=== PATIENT | male | born 1965 | race Caucasian/White ===

== ENCOUNTER 2018-01-01 22:43 | Inpatient (IN) ==
[2018-01-01 23:08] LABS: Basophils # 0.1 K/mcL (0.0-0.2); Basophils % 0.6 %; Eosinophils # 0.1 K/mcL (0.0-0.6); Eosinophils % 1.4 %; Hematocrit 48.7 % (37.5-50.1); Hemoglobin 16.7 g/dL (12.9-16.9); Immature Granulocytes % 0.5 % (0-4); Lymphocytes # 3.5 K/mcL (0.6-4.6); Lymphocytes % 40.2 %; Mean Corpuscular HGB Conc 34.3 g/dL (31.6-35.5); Mean Corpuscular Hemoglobin 31.3 pg (28.0-33.3); Mean Corpuscular Volume 91.2 fL (83.0-100.0); Mean Platelet Volume 10.4 fL (9.4-12.4); Monocytes # 0.5 K/mcL (0.0-1.3); Monocytes % 6.1 %; Neutrophils # 4.5 K/mcL (1.6-8.9); Platelet Count 275 K/mcL (140-400); Red Blood Count 5.34 M/mcL (4.19-5.50); Red Cell Distribution Width 13.5 % (11.5-14.5); Segmented Neutrophils % 51.2 %
[2018-01-01 23:18] LABS: INR 1.1
[2018-01-01 23:21] LABS: Activated Partial Thrombo Time 31.2 Seconds (26.0-36.0)
[2018-01-01 23:37] LABS: BUN/Creatinine Ratio 16 (6-26); Blood Urea Nitrogen 13 mg/dL (6-20); Calcium 9.6 mg/dL (8.6-10.3); Carbon Dioxide 25 mEq/L (23-29); Chloride 108 mEq/L (98-107); Glucose 113 mg/dL (70-105); Osmolality,Calculated 293 (280-300); Potassium 3.5 mEq/L (3.5-5.1); Sodium 141 mEq/L (136-145); eGFR For African Americans > 60 (> 60); eGFR For Non-African Americans > 60 (> 60)
[2018-01-01 23:38] LABS: Troponin I < 0.03 ng/mL (< 0.04)
--- NOTE | 2018-01-02 00:02 | Emergency Department Note ---
Disposition Clinical Impression: Chest pain Qualifiers: Chest pain type: unspecified Qualified Code(s): R07.9 - Chest pain, unspecified Disposition: Admitted As Inpatient Condition: Good Time of Disposition: 02:17 Chest Pain HPI - General Chief Complaint: ED Chest Pain Stated Complaint: cp Time Seen by Provider: 01/01/18 23:05 Source: patient Limitations: no limitations Vital Signs Reviewed: Yes Nursing Notes Reviewed: Yes - History of Present Illness Pt complaint: chest pain Onset (ago): week(s) Duration: intermittent Onset: during exertion Pain Location: substernal Severity scale (1-10): 6 Quality: heaviness Improves with: nothing Worsens with: exertion Associated symptoms: Reports: other (skin color changes in hands) - Related Data Allergies Allergy/AdvReac Type Severity Reaction Status Date / Time No Known Allergies Allergy Verified 01/01/18 22:44 All systems ED: reviewed and negative except as stated. Review of Systems: As Per HPI Constitutional: Denies: fever, chills, weakness Eyes: Denies: eye discharge ENT ED: Denies: throat pain Cardiovascular: Denies: palpitations Respiratory: Reports: as per HPI. Denies: dyspnea Gastrointestinal: Denies: abdominal pain, nausea, vomiting Genitourinary: Denies: dysuria Musculoskeletal: Denies: back pain Integumentary: Denies: rash Neurological: Denies: headache, weakness, numbness, paresthesias Psychiatric: Reports: as per HPI, anxiety Endocrine: Denies: fatigue Hematological/Lymphatic: Denies: easy bleeding Allergic/Immunologic: Denies: facial swelling Chest Pain PMH - Past Medical History Medical history: Reports: no medical history Psychiatric history: Reports: anxiety - Social History Smoking Status: Current every day smoker Alcohol use: Reports: none Drug use: Reports: none Physical Exam - General Limitations: no limitations General appearance: alert, in no apparent distress, anxious - Head Head exam: normocephalic - Eye Eye exam: Present: EOMI. Absent: conjunctival injection - ENT ENT exam: mucous membranes moist - Neck Neck exam: Present: full ROM - Chest Chest inspection: Present: normal inspection, symmetric chest wall rise - Respiratory Respiratory exam: Present: normal lung sounds bilaterally. Absent: respiratory distress, wheezes, stridor - Cardiovascular Cardiovascular exam: Present: regular rate, normal rhythm - Abdominal Exam Abdominal exam: Present: soft, Non-Tender - Extremities Exam Extremities exam: Present: normal inspection, full ROM, normal capillary refill - Back Exam Back exam: Present: normal inspection, full ROM - Neurological Exam Neurological exam: Present: alert, oriented X3 - Psychiatric Psychiatric exam: Present: normal affect, normal mood. Absent: suicidal ideation - Skin Skin exam: Present: warm, dry, intact, normal color. Absent: rash, cyanosis, diaphoresis Course Course Narrative: 52-year-old male smoker presents with chest pain. He states that his chest pain has been intermittent, lasting since last week. He mentions it has started , he also mentions recent loss of his unexpectedly. He mentions his chest pain is accompanied with some shortness of breath, and no some discussed separation of his hands. He denies any nausea, vomiting, diaphoresis or exertional component. He mentions he is noncompliant with his medications, denies any history of hypertension hyperlipidemia, or diabetes. Denies any fever, cough, hemoptysis, or thoughts of worsening depression or SI. Workup initiated. - Reevaluation(s) Reevaluation #1: Pt vitals stable. Currently pain free. Pt discussed with and accepted by hospitalist Dr. Ramirez Time: 02:16 Vital Signs Temperature 98.2 F 01/01/18 22:45 Pulse Rate 84 01/01/18 22:45 Respiratory Rate 20 01/01/18 22:45 Blood Pressure 219/139 01/01/18 22:45 O2 Sat by Pulse Oximetry 96 01/01/18 22:45 Temperature 98.2 F 01/01/18 22:45 Pulse Rate 63 01/02/18 02:06 Respiratory Rate 18 01/02/18 02:33 Blood Pressure 151/92 01/02/18 02:33 O2 Sat by Pulse Oximetry 96 01/02/18 02:06 Oxygen Delivery Oxygen Delivery Nasal Cannula Chest Pain - [facility] Narrative Medical decision making narrative: Patient has had intermittent chest pain, coming with shortness of breath, worse with exertion. He is currently pain-free at this time, however Patient has a heart score 3, with significant history of hypertension, obesity, smoker. He has no recent cardiac workup or Evaluation. Patient was discussed with attending Dr. Hunt, who had face time with patient and agreed for decision to admit for ACS rule out. Laboratory Tests 01/01/18 01/01/18 01/01/18 23:01 23:01 23:01 WBC 8.7 RBC 5.34 Hgb 16.7 Hct 48.7 MCV 91.2 MCH 31.3 MCHC 34.3 RDW 13.5 Plt Count 275 MPV 10.4 Immature Gran % 0.5 Seg Neutrophils % 51.2 Lymphocytes % 40.2 Monocytes % 6.1 Eosinophils % 1.4 Basophils % 0.6 Neutrophils # 4.5 Lymphocytes # 3.5 Monocytes # 0.5 Eosinophils # 0.1 Basophils # 0.1 PT 12.0 INR 1.1 APTT 31.2 Sodium 141 Potassium 3.5 Chloride 108 H Carbon Dioxide 25 BUN 13 Creatinine 0.83 Est GFR ( Amer) > 60 Est GFR (Non-Af Amer) > 60 BUN/Creatinine Ratio 16 Glucose 113 H Calculated Osmolality 293 Calcium 9.6 Troponin I < 0.03 - Lab Data Lab results reviewed: Yes I reviewed the patient's lab results. Result diagrams: 01/01/18 23:01 01/01/18 23:01 Lab Results 01/01/18 01/01/18 01/01/18 Range/Units 23:01 23:01 23:01 WBC 8.7 (4.3-11.1) K/mcL RBC 5.34 (4.19-5.50) M/mcL Hgb 16.7 (12.9-16.9) g/dL Hct 48.7 (37.5-50.1) % MCV 91.2 (83.0-100.0) fL MCH 31.3 (28.0-33.3) pg MCHC 34.3 (31.6-35.5) g/dL RDW 13.5 (11.5-14.5) % Plt Count 275 (140-400) K/mcL MPV 10.4 (9.4-12.4) fL Immature Gran % 0.5 (0-4) % Seg Neutrophils % 51.2 % Lymphocytes % 40.2 % Monocytes % 6.1 % Eosinophils % 1.4 % Basophils % 0.6 % Neutrophils # 4.5 (1.6-8.9) K/mcL Lymphocytes # 3.5 (0.6-4.6) K/mcL Monocytes # 0.5 (0.0-1.3) K/mcL Eosinophils # 0.1 (0.0-0.6) K/mcL Basophils # 0.1 (0.0-0.2) K/mcL PT 12.0 (9.4-12.1) Seconds INR 1.1 APTT 31.2 (26.0-36.0) Seconds Sodium 141 (136-145) mEq/L Potassium 3.5 (3.5-5.1) mEq/L Chloride 108 H (98-107) mEq/L Carbon Dioxide 25 (23-29) mEq/L BUN 13 (6-20) mg/dL Creatinine 0.83 (0.70-1.30) mg/dL Est GFR ( Amer) > 60 (> 60) Est GFR (Non-Af Amer) > 60 (> 60) BUN/Creatinine Ratio 16 (6-26) Glucose 113 H (70-105) mg/dL Calculated Osmolality 293 (280-300) Calcium 9.6 (8.6-10.3) mg/dL Troponin I < 0.03 (< 0.04) ng/mL - Radiology Data Radiology results reviewed: Yes I reviewed the patient's radiology results. Chest X-Ray 01/01/18 22:48 IMPRESSION: Low lung volume study. No acute process otherwise. D/ / Daniel Matute MD / Daniel Matute MD Interpreting Provider: Daniel Matute MD - EKG Data EKG attestation: Yes I reviewed and interpreted this EKG. EKG results narrative: Rate 80, WA interval 132, QRS duration 91, QT over QTC 373/409, sinus rhythm, borderline left axis deviation, previous EKG comparison from March 2013; no evidence of acute ischemia. Heart Score - Score History: Slightly Suspicious EKG: Normal Age: 45-65 Risk Factors: Equal/Greater than 3 risk factor or history of atherosclerotic disease Troponin: Less than normal limit HEART Score Total: 3 Attestation Statement - Attestation Attestation: I, Alli Hunt MD, personally evaluated this patient and discussed their management with the midlevel provicer, PAC/TYING MACHINE OPERATOR. I reviewed the midlevel provider 's note and agree with the documented findings, medical decision making, and plan of care. 52-year-old male presents complaining of some intermittent substernal chest pains off and on for the past week. No prior history of chest pain or cardiac problems. Pain radiates to the back and shoulders. Some mild shortness of breath. No diaphoresis. No palpitations. On examination patient is a well-developed well-nourished well-appearing male in no acute distress. He is alert and oriented 3. There is no cyanosis or diaphoresis. Chest is nontender to palpation. Breath sounds clear and equal bilaterally. Heart regular rate and rhythm. Abdomen soft and nontender with normal bowel sounds. Labs reviewed. Troponin normal. Chest x-ray negative. No acute ischemic changes on EKG. The hospitalist, Dr. Ramirez, was consulted and accepted admission of the patient.
[2018-01-02] MEDS ORDERED: Aspirin 81 MG TAB.CHEW PO ONE (01:51)
--- NOTE | 2018-01-02 02:44 | Internal Med History&Physical ---
Date of Encounter: 01/02/18 Time of Encounter: 02:38 Assessment and Plan (1) Chest pain Current visit: Yes Status: Acute Chest pain is atypical, will check troponin 2. Check a d-dimer if positive may need to do PE studies. Due to hypoxia. Will order echocardiogram . Qualifiers: Chest pain type: unspecified Qualified Code(s): R07.9 - Chest pain, unspecified (2) Morbid obesity due to excess calories Current visit: Yes Status: Acute Patient is hypoxic during sleep, placed on oxygen (3) Smoker Current visit: Yes Status: Acute Patient is smokes 2 packs daily smoking cessation discussed (4) Hypoxia Current visit: Yes Status: Acute Hypoxic, will check d-dimer and if positive needed to PE study to rule out PE Internal Medicine - H&P: HPI Chief complaint: chest pain Admitted From: Home Plans for Post Hospital Care: Home History of present illness: Mr. Pino is a 52 year old male who has a history of anxiety, smoke present to emergency room for and off chest pain for 1 week. Chest pains located to the bilateral cross lower chest, sharp 8 out of 10, on and off lasting for few minutes, he has been getting more frequent almost once daily. Associated with some anxiety. Patient denies diaphoresis palpation, pain does not radiate to the arm or back. Patient states his a week ago he has been under a lot of stress, he feels like stress makes him getting more frequently chest pain. Chest pain is not exertional. He smokes 2 packs daily, denies family history of CAD. He has primary care physician. First troponin is negative, EKG shows no changes compared to 2013. Patient is going to be placed to observation follow-up 2 more troponin. If troponin is negative then can be discharged and a follow-up was primary care physician for outpatient stress test. He was found hypoxic on RA 89%, will check D-dimer, if positive, may need CT angio to r/o PE. Past Med Surg Social Fam HX - Past Medical History Medical history: no medical history Psychiatric history: anxiety - Social History Smoking Status: Current every day smoker Smokeless Tobacco Status: No Alcohol use: none Drug use: none Internal Medicine - H&P: Meds 3 Allergy/AdvReac Type Severity Reaction Status Date / Time No Known Allergies Allergy Verified 01/01/18 22:44 All Systems PM: A 10-system review of systems was performed and is negative for pertinent findings except as documented above in the HPI. - Constitutional Vitals: Temp Pulse Resp BP Pulse Ox 98.2 F 63 18 151/92 96 01/01/18 22:45 01/02/18 02:06 01/02/18 02:33 01/02/18 02:33 01/02/18 02:06 General appearance: Present: A&O X 3, pleasant Exam: CONSTITUTIONAL: Patient appears as an age appropriate male well developed, in no acute distress. EYES Clear sclerae, bilateral pupils are equal, reactive to light and accommodation. Extraocular movements are intact RESPIRATORY: No accessory muscle use, bilateral clear to auscultation, no wheezing, no crackles/rales. CARDIOVASCULAR: Regular heart rate, normal S1 and S2, no murmurs GASTROINTESTINAL: bowel sounds present, soft, no tenderness. No hepatosplenomegaly. No bilateral CVA tenderness MUSCULOSKELETAL: Joints in normal range of motion, no clubbing, no edema, no cyanosis. Bilateral peripheral pulses 2+ LYMPHATIC no lymphadenopathy in neck, groin and axilla bilaterally, no thyromegaly. NEUROLOGIC: CN II to XII are grossly intact, no focal neurological deficit. Deep tendon reflexes 2+ bilaterally. Normal light touch sensation to upper and lower extremity PSYCHIATRIC: Oriented x3, with good insight, mood is euthymic. No hallucinations or delusions. SKIN: Skin warm and dry, no rashes, no open wound. Internal Med - H&P Results - Labs CBC & Chem 7: 01/01/18 23:01 01/01/18 23:01
[2018-01-02] MEDS ORDERED: Nitroglycerin 0.4 MG TAB.SUBL SL PRN (02:49)
[2018-01-02] MEDS: D5% in 0.45% NACL 1,000 ML IVC SCH ×2 (03:26→16:52)
[2018-01-02 04:56] LABS: INR 1.1; Prothrombin Time 11.7 Seconds (9.4-12.1)
[2018-01-02 05:02] LABS: Basophils # 0.1 K/mcL (0.0-0.2); Basophils % 0.9 %; Eosinophils # 0.1 K/mcL (0.0-0.6); Eosinophils % 1.8 %; Hematocrit 45.2 % (37.5-50.1); Hemoglobin 15.5 g/dL (12.9-16.9); Immature Granulocytes % 0.3 % (0-4); Lymphocytes # 3.1 K/mcL (0.6-4.6); Lymphocytes % 45.7 %; Mean Corpuscular HGB Conc 34.3 g/dL (31.6-35.5); Mean Corpuscular Hemoglobin 31.2 pg (28.0-33.3); Mean Corpuscular Volume 90.9 fL (83.0-100.0); Mean Platelet Volume 10.6 fL (9.4-12.4); Monocytes # 0.6 K/mcL (0.0-1.3); Monocytes % 8.4 %; Neutrophils # 2.9 K/mcL (1.6-8.9); Nucleated Red Blood Cells 0.4 /100 WBC (0); Platelet Count 274 K/mcL (140-400); Red Blood Count 4.97 M/mcL (4.19-5.50); Red Cell Distribution Width 13.7 % (11.5-14.5); Segmented Neutrophils % 42.9 %
[2018-01-02 05:13] LABS: Alanine Aminotransferase 18 Units/L (7-52); Albumin 4.1 g/dL (3.5-5.7); Albumin/Globulin Ratio 1.7 (1.1-2.2); Alkaline Phosphatase 113 Units/L (34-104); Aspartate Amino Transferase 17 Units/L (13-39); BUN/Creatinine Ratio 19 (6-26); Blood Urea Nitrogen 14 mg/dL (6-20); Calcium 9.2 mg/dL (8.6-10.3); Carbon Dioxide 24 mEq/L (23-29); Chloride 109 mEq/L (98-107); Globulin 2.4 g/dL (2.4-3.5); Glucose 94 mg/dL (70-105); Osmolality,Calculated 290 (280-300); Potassium 3.4 mEq/L (3.5-5.1); Sodium 140 mEq/L (136-145); Total Protein 6.5 g/dL (6.4-8.9); eGFR For African Americans > 60 (> 60); eGFR For Non-African Americans > 60 (> 60)
[2018-01-02] MEDS: Aspirin 81 MG TAB.CHEW PO SCH (08:01)
--- NOTE | 2018-01-02 09:39 | Event Note ---
Date of Encounter: 01/02/18 Time of Encounter: 09:36 I seen an examined the patient at bedside. He denies any CP or SOB at this time. He jenna any past hx of COPD or heart disease. I discussed the importance of smoking cessation however the patient states that he is not interested in quitting because he enjoys smoking. He has been under alot of stress this week, his unexpectedly. He denies any suicidal ideation at this time. Awaiting echo results
[2018-01-02] MEDS: Nicotine 21 MG PATCH.TD24 TD SCH (20:00)
[2018-01-02] MEDS: Acetaminophen 325 MG TABLET PO PRN (20:01)
[2018-01-03] MEDS: Aspirin 81 MG TAB.CHEW PO SCH (09:04)
[2018-01-03] MEDS: Nicotine 21 MG PATCH.TD24 TD SCH (09:04)
[2018-01-03] MEDS: Venlafaxine XR (24 HR) 75 MG CAP.ER.24H PO SCH (09:42)
[2018-01-03] MEDS: hydroCHLOROthiazide 25 MG TABLET PO SCH (09:42)
[2018-01-03 14:07] LABS: BUN/Creatinine Ratio 12 (6-26); Blood Urea Nitrogen 9 mg/dL (6-20); Calcium 8.9 mg/dL (8.6-10.3); Carbon Dioxide 23 mEq/L (23-29); Chloride 110 mEq/L (98-107); Glucose 116 mg/dL (70-105); Osmolality,Calculated 290 (280-300); Sodium 140 mEq/L (136-145); eGFR For African Americans > 60 (> 60); eGFR For Non-African Americans > 60 (> 60)
--- NOTE | 2018-01-03 15:04 | Discharge Summary ---
Orders not resulted at time of discharge: Pending orders 01/02/18 02:49 ECG 12 lead ECG [ECG] Routine Date of Encounter: 01/03/18 Time of Encounter: 15:01 - Discharge Diagnosis (1) Chest pain Status: Acute Comments: 1 patient has been under a lot of stress he recently lost his this past week unexpectedly chest pain appears atypical troponins 3 have been negative. D-dimer was completed due to hypoxia on presentation it was normal. Echo has been ordered and completed Continue with aspirin Qualifiers: Chest pain type: unspecified Qualified Code(s): R07.9 - Chest pain, unspecified (2) Hypoxia Status: Acute (3) Morbid obesity due to excess calories Status: Acute (4) Smoker Status: Acute Hospital course: Mr. Pino is a 52 year old male - Time Spent with Patient Total time spent providing and/or coordinating discharge services: - Discharge Medications Home Medications: Aspirin 81 mg PO DAILY 01/02/18 [History] Venlafaxine [Effexor] 75 mg PO DAILY 01/02/18 [History] hydroCHLOROthiazide [Hydrochlorothiazide] 25 mg PO DAILY 01/02/18 [History] Allergies/Adverse Reactions: 3 Allergy/AdvReac Type Severity Reaction Status Date / Time No Known Allergies Allergy Verified 01/02/18 15:58 Date of admission: 01/02/18 02:18 Primary care physician: Velma Henderson CNP Discharging clinician: Bharti Christianson Anticipated date of discharge: 01/03/18 - Constitutional Vitals: Temp Pulse Resp BP Pulse Ox 97.9 F 62 16 158/83 93 01/03/18 14:50 01/03/18 14:50 01/03/18 14:50 01/03/18 14:50 01/03/18 14:50 General appearance: Present: A&O X 3, pleasant - Patient Status Condition: Good - Discharge Instructions Follow Up With: Velma Henderson CNP [Primary Care Provider] -
--- NOTE | 2018-01-03 15:32 | Internal Med Progress Note ---
Date of Encounter: 01/03/18 Time of Encounter: 15:00 - Assessment and plan (1) Chest pain Current Visit: Yes Status: Acute Assessment and plan: 1 presently patient is not expressing any chest pain however he has been hypertensive overnight. Patient's risk factors include obesity smoking high blood pressure. Troponins have been negative echo is pending. Patient requesting to go home we did discuss options concerning stress test, because of his risk factors would prefer to perform test inpatient. Patient agreed. Patient will be nothing by mouth after midnight and stress test performed in the a.m. Continuous cardiac monitoring Aspirin we will check lipid profile Nitroglycerin for chest pain Qualifiers: Chest pain type: unspecified Qualified Code(s): R07.9 - Chest pain, unspecified (2) Hypoxia Current Visit: Yes Status: Acute Assessment and plan: 1 d-dimer is within normal limits patient does smoke 2 packs a day I suspect that he may have undiagnosed COPD. Encouraged patient to stop smoking nicotine patch (3) Morbid obesity due to excess calories Current Visit: Yes Status: Acute Assessment and plan: Encourage patient to lose weight encourage low-fat low-cholesterol diet with exercise (4) Smoker Current Visit: Yes Status: Acute Assessment and plan: Encourage patient to stop smoking nicotine patch (5) Hypertension Current Visit: Yes Status: Acute Assessment and plan: Uncontrolled patient has had elevated blood pressures overnight with systolics 190-200 diastolic 90-100. Hydralazine when necessary for systolic greater than 180. Resuming patient home dose of hydrochlorothiazide-blood pressure is now down to 130 systolic we will continue to monitor for now Qualifiers: Hypertension type: essential hypertension Qualified Code(s): I10 - Essential (primary) hypertension (6) DVT prophylaxis Current Visit: Yes Status: Acute Assessment and plan: Heparin subcutaneous - Time Spent With Patient less than 15 minutes - Subjective Interval history: Patient's blood pressure has been elevated systolic 190 A-200 diastolic 90-100. Patient has been given when necessary hydralazine which has brought that her pressure down to 140 systolic continued with home medications. Patient denies any chest pain or shortness of breath. Patient requesting to go home discussed with patient that I prefer that he stay and have a stress test in the a.m. due to the fact that he has multiple risk factors. Patient agrees to stay for stress test in the a.m. He will be nothing by mouth after midnight - Constitutional Vitals: Temp Pulse Resp BP Pulse Ox 97.9 F 62 16 153/83 93 01/03/18 14:50 01/03/18 14:50 01/03/18 14:50 01/03/18 15:16 01/03/18 14:50 General appearance: Present: A&O X 3, pleasant - Head Head exam: Present: atraumatic, normocephalic - Eye Eye exam: Present: PERRL, conjuntiva pink, sclera anicteric Pupils: Present: PERRL - Neck Neck exam general surgery: Present: supple, trachea midline. Absent: lymphadenopathy - Respiratory Respiratory exam: Present: CTAB. Absent: accessory muscle use, rales, rhonchi, wheezes - Cardiovascular Cardiovascular exam: Present: RRR, +S1, +S2. Absent: diastolic murmur, gallop, rubs, systolic murmur - GI/Abdominal GI/Abdominal exam: Present: normal bowel sounds, soft, no peritoneal signs. Absent: distended, tenderness - Extremities Exam Extremities exam: Present: warm, radial pulses palpable and symmetrical. Absent : calf tenderness, cyanotic, pedal edema - Neurological Exam Neurological exam: Present: CN II-XII intact, oriented X3, no focal deficits. Absent: pronater drift, facial droop, speech deficit - Skin Skin exam: Present: dry, intact Internal Medicine: Result - Labs CBC & Chem 7: 01/02/18 03:48 01/03/18 09:18 Labs: BMP 01/03/18 09:18 Sodium 140 Potassium 4.0 Chloride 110 H Carbon Dioxide 23 BUN 9 Creatinine 0.78 Glucose 116 H Calcium 8.9 Cardiac Enzymes 01/02/18 Range/Units 15:25 Troponin I < 0.03 (< 0.04) ng/mL - ABG Interpretation ABG results: PT/INR, D-dimer PT 11.7 Seconds (9.4-12.1) 01/02/18 03:48 D-Dimer 266 ng/mLFEU (0-500) 01/02/18 03:48 Consult Discharge Plan - Plan Instructions: Chest Pain (GEN), How to Stop Smoking (GEN), Hypertensive Crisis (GEN) Referrals: Velma Henderson, WHEEL PRESS OPERATOR [Primary Care Provider] - (Please f/u with log of BP to PCP or resident clinic in 7-10 days Call [phone] if needed )
[2018-01-03] MEDS: Acetaminophen 325 MG TABLET PO PRN (15:51)
[2018-01-03] MEDS: D5% in 0.45% NACL 1,000 ML IVC SCH ×2 (15:53→18:13)
[2018-01-03] MEDS: *HR* Heparin 5,000 UNIT/ML VIAL SQ SCH (18:09)
[2018-01-04] MEDS: *HR* Heparin 5,000 UNIT/ML VIAL SQ SCH ×2 (05:24→17:56)
[2018-01-04 05:34] LABS: Basophils % 0.6 %; Eosinophils # 0.1 K/mcL (0.0-0.6); Eosinophils % 2.1 %; Hematocrit 43.6 % (37.5-50.1); Hemoglobin 15.6 g/dL (12.9-16.9); Immature Granulocytes % 0.3 % (0-4); Lymphocytes # 2.7 K/mcL (0.6-4.6); Lymphocytes % 40.2 %; Mean Corpuscular HGB Conc 35.8 g/dL (31.6-35.5); Mean Corpuscular Hemoglobin 31.9 pg (28.0-33.3); Mean Corpuscular Volume 89.2 fL (83.0-100.0); Mean Platelet Volume 10.6 fL (9.4-12.4); Monocytes # 0.5 K/mcL (0.0-1.3); Monocytes % 6.9 %; Neutrophils # 3.4 K/mcL (1.6-8.9); Platelet Count 254 K/mcL (140-400); Red Blood Count 4.89 M/mcL (4.19-5.50); Red Cell Distribution Width 13.4 % (11.5-14.5); Segmented Neutrophils % 49.9 %
[2018-01-04 05:50] LABS: BUN/Creatinine Ratio 14 (6-26); Blood Urea Nitrogen 11 mg/dL (6-20); Calcium 9.2 mg/dL (8.6-10.3); Carbon Dioxide 26 mEq/L (23-29); Chloride 108 mEq/L (98-107); Chol/HDL Ratio 4.9 (0-4.9); Cholesterol 163 mg/dL (< 200); Glucose 99 mg/dL (70-105); HDL Cholesterol 33 mg/dL (40-59); LDL Cholesterol,Calculated 115 mg/dL (0-99); Osmolality,Calculated 289 (280-300); Potassium 3.6 mEq/L (3.5-5.1); Sodium 140 mEq/L (136-145); Triglycerides 76 mg/dL (< 150); eGFR For African Americans > 60 (> 60); eGFR For Non-African Americans > 60 (> 60)
[2018-01-04] MEDS ORDERED: Regadenoson 0.4 MG/5 ML SYRINGE IVP ONE (06:01)
[2018-01-04] MEDS: Acetaminophen 325 MG TABLET PO PRN ×3 (08:34→22:31)
--- NOTE | 2018-01-04 08:46 | Internal Med Progress Note ---
Date of Encounter: 01/04/18 Time of Encounter: 08:43 - Assessment and plan (1) Chest pain Current Visit: Yes Status: Acute Assessment and plan: 1 presently patient is not expressing any chest pain BP better. Patient's risk factors include obesity smoking high blood pressure. Troponins have been negative echo is pending. Awaiting cardiac Stress test Continuous cardiac monitoring Aspirin we will check lipid profile Nitroglycerin for chest pain Qualifiers: Chest pain type: unspecified Qualified Code(s): R07.9 - Chest pain, unspecified (2) Hypoxia Current Visit: Yes Status: Acute Assessment and plan: 1 d-dimer is within normal limits patient does smoke 2 packs a day I suspect that he may have undiagnosed COPD. Encouraged patient to stop smoking nicotine patch (3) Morbid obesity due to excess calories Current Visit: Yes Status: Acute Assessment and plan: Encourage patient to lose weight encourage low-fat low-cholesterol diet with exercise (4) Smoker Current Visit: Yes Status: Acute Assessment and plan: Encourage patient to stop smoking nicotine patch (5) Hypertension Current Visit: Yes Status: Acute Assessment and plan: Uncontrolled patient has had elevated blood pressures overnight with systolics 190-200 diastolic 90-100. Hydralazine when necessary for systolic greater than 180. Resuming patient home dose of hydrochlorothiazide-blood pressure is now down we will continue to monitor Qualifiers: Hypertension type: essential hypertension Qualified Code(s): I10 - Essential (primary) hypertension (6) DVT prophylaxis Current Visit: Yes Status: Acute Assessment and plan: Heparin subcutaneous - Time Spent With Patient less than 15 minutes - Subjective Interval history: Patient's blood pressure improved, No CP over night Only complaint is headache awaiting to go to stress. - Constitutional Vitals: Temp Pulse Resp BP Pulse Ox 97.5 F L 60 20 168/93 93 01/04/18 07:18 01/04/18 07:18 01/04/18 07:18 01/04/18 07:18 01/04/18 07:18 General appearance: Present: A&O X 3, pleasant - Head Head exam: Present: atraumatic, normocephalic - Eye Eye exam: Present: PERRL, conjuntiva pink, sclera anicteric Pupils: Present: PERRL - Neck Neck exam general surgery: Present: supple, trachea midline. Absent: lymphadenopathy - Respiratory Respiratory exam: Present: CTAB. Absent: accessory muscle use, rales, rhonchi, wheezes - Cardiovascular Cardiovascular exam: Present: RRR, +S1, +S2. Absent: diastolic murmur, gallop, rubs, systolic murmur - GI/Abdominal GI/Abdominal exam: Present: normal bowel sounds, soft, no peritoneal signs. Absent: distended, tenderness - Extremities Exam Extremities exam: Present: warm, radial pulses palpable and symmetrical. Absent : calf tenderness, cyanotic, pedal edema - Neurological Exam Neurological exam: Present: CN II-XII intact, oriented X3, no focal deficits. Absent: pronater drift, facial droop, speech deficit - Skin Skin exam: Present: dry, intact Internal Medicine: Result - Labs CBC & Chem 7: 01/04/18 05:11 01/04/18 05:11 Labs: Short CBC 01/04/18 Range/Units 05:11 WBC 6.8 (4.3-11.1) K/mcL Hgb 15.6 (12.9-16.9) g/dL Hct 43.6 (37.5-50.1) % Plt Count 254 (140-400) K/mcL Neutrophils # 3.4 (1.6-8.9) K/mcL BMP 01/04/18 05:11 Sodium 140 Potassium 3.6 Chloride 108 H Carbon Dioxide 26 BUN 11 Creatinine 0.77 Glucose 99 Calcium 9.2 - ABG Interpretation ABG results: PT/INR, D-dimer PT 11.7 Seconds (9.4-12.1) 01/02/18 03:48 D-Dimer 266 ng/mLFEU (0-500) 01/02/18 03:48 Consult Discharge Plan - Plan Instructions: Chest Pain (GEN), How to Stop Smoking (GEN), Hypertensive Crisis (GEN) Referrals: Velma Henderson, AIR LIAISON AND SPECIAL STAFF [Primary Care Provider] - (Please f/u with log of BP to PCP or resident clinic in 7-10 days Call [phone]) if needed )
[2018-01-04] MEDS: Nicotine 21 MG PATCH.TD24 TD SCH (13:09)
[2018-01-04] MEDS: Venlafaxine XR (24 HR) 75 MG CAP.ER.24H PO SCH (13:16)
[2018-01-04] MEDS: hydroCHLOROthiazide 25 MG TABLET PO SCH (13:16)
[2018-01-04] MEDS: Aspirin 81 MG TAB.CHEW PO SCH (13:16)
[2018-01-04] MEDS: D5% in 0.45% NACL 1,000 ML IVC SCH (13:17)
[2018-01-05] MEDS: D5% in 0.45% NACL 1,000 ML IVC SCH (03:49)
[2018-01-05] MEDS: *HR* Heparin 5,000 UNIT/ML VIAL SQ SCH (06:17)
[2018-01-05] MEDS: hydroCHLOROthiazide 25 MG TABLET PO SCH (09:48)
[2018-01-05] MEDS: Aspirin 81 MG TAB.CHEW PO SCH (09:48)
[2018-01-05] MEDS: Nicotine 21 MG PATCH.TD24 TD SCH (09:49)
[2018-01-05] MEDS: Venlafaxine XR (24 HR) 75 MG CAP.ER.24H PO SCH (09:49)
[2018-01-05] MEDS ORDERED: amLODIPine 5 MG TABLET PO ONE (10:12)
[2018-01-05 11:21] VITALS: BP 173/83
--- NOTE | 2018-01-05 14:14 | Discharge Summary ---
- NOTES TO OUTPATIENT PROVIDER Notes to Outpatient Provider: PCP within week, started on blood pressure medications, also pulmonary for likely undiagnosed COPD Date of Encounter: 01/05/18 Time of Encounter: 14:12 - Discharge Diagnosis (1) Chest pain Priority: Primary Status: Acute Qualifiers: Chest pain type: unspecified Qualified Code(s): R07.9 - Chest pain, unspecified (2) Hypertension Priority: Primary Status: Acute Qualifiers: Hypertension type: essential hypertension Qualified Code(s): I10 - Essential (primary) hypertension (3) Morbid obesity due to excess calories Priority: Primary Status: Acute (4) Smoker Priority: Primary Status: Acute Hospital course: Mr. Pino is a 52 year old male with a history of anxiety tobacco abuse who presented to the emergency room for chest pain on and off for 1 week. He stated it was sharp 8 out of 10 and lasted for several minutes at a time. It became more frequent in occurrence until was occurring daily usually associated with some anxiety. He denied sweats or palpitations. No radiation of pain. His one week ago and he is under quite a bit of stress as this was very sudden occurrence. His pain was not exertional. He smokes 2 packs a day and did not denied a family history of CAD. Troponins were negative. EKG with no changes compared to previous from 2012. A two-step stress test was completed and report was reviewed with no ischemia or infarct noted. The patient also had some uncontrolled high blood pressure which was previously not diagnosed. He was placed on 2 medications for discharge. Cessation of smoking was advised as well for lifestyle changes for his obesity. Urged to follow-up with his primary care physician next week for follow-up of his hypertension. The patient is in agreement and feels that this was all related to his stress. Emotional support was provided. He had no O2 needs. Also recommend he follow up with pulmonary as he likely has some undiagnosed COPD. Discharge discussed with: patient, nurse Time spent discussing smoking cessation with patient: 3 to 10 minutes - Time Spent with Patient Total time spent providing and/or coordinating discharge services: Less than 30 minutes - Discharge Medications Prescriptions: amLODIPine [Norvasc] 10 mg PO DAILY #30 tablet hydroCHLOROthiazide [Hydrochlorothiazide] 25 mg PO DAILY #30 tablet Home Medications: Venlafaxine [Effexor] 75 mg PO DAILY 01/02/18 [History] Aspirin 81 mg PO DAILY tab.chew 01/05/18 [Rx] amLODIPine [Norvasc] 10 mg PO DAILY #30 tablet 01/05/18 [Rx] hydroCHLOROthiazide [Hydrochlorothiazide] 25 mg PO DAILY #30 tablet 01/05/18 [Rx ] Allergies/Adverse Reactions: 3 Allergy/AdvReac Type Severity Reaction Status Date / Time No Known Allergies Allergy Verified 01/02/18 15:58 Date of admission: 01/03/18 16:17 Primary care physician: Velma Henderson CNP Discharging clinician: Zina Mcdonald Anticipated date of discharge: 01/05/18 - Constitutional Vitals: Temp Pulse Resp BP Pulse Ox 98.3 F 66 16 173/83 94 01/05/18 11:20 01/05/18 11:20 01/05/18 11:20 01/05/18 11:20 01/05/18 11:20 General appearance: Present: cooperative, A&O X 3, morbidly obese, pleasant, no acute distress, answers questions appropriately - Head Head exam: Present: atraumatic, normocephalic - Eye Eye exam: Present: PERRL, conjuntiva pink, sclera anicteric Pupils: Present: PERRL - Neck Neck exam general surgery: Present: supple, trachea midline. Absent: lymphadenopathy - Respiratory Respiratory exam: Present: CTAB. Absent: accessory muscle use, rales, rhonchi, wheezes - Cardiovascular Cardiovascular exam: Present: RRR, +S1, +S2. Absent: diastolic murmur, gallop, rubs, systolic murmur - GI/Abdominal GI/Abdominal exam: Present: normal bowel sounds, soft, no peritoneal signs. Absent: distended, tenderness - Extremities Exam Extremities exam: Present: warm, radial pulses palpable and symmetrical. Absent : calf tenderness, cyanotic, pedal edema - Neurological Exam Neurological exam: Present: alert, CN II-XII intact, normal gait, oriented X3, no focal deficits. Absent: pronater drift, facial droop, speech deficit - Skin Skin exam: Present: dry, intact, normal color, warm - Patient Status Disposition: Home, Self-Care Condition: Good Functional capacity at discharge: independent ambulation Overall status at discharge: patient is back to baseline - Discharge Instructions Instructions: Hydrochlorothiazide (By mouth), Amlodipine (By mouth), Chest Pain (GEN), How to Stop Smoking (GEN), Hypertensive Crisis (GEN) Follow Up With: [facility] [Provider Group] - 02/02/18 3:30 pm Velma Henderson CNP [Primary Care Provider] - (Please f/u with log of BP to PCP or resident clinic in 7-10 days Call [phone] if needed ) - Diet and Activity Activity: resume usual activities as tolerated Diet: low fat, low cholesterol, low salt diet
[2018-01-06] MEDS ORDERED: amLODIPine 5 MG TABLET PO ONE (09:24)
== END 2018-01-05 15:45 | disposition home or self-care (01) | DRG 313 ==
LOC: EMEROO 22:43 → 3BNU 22:43
PROVIDERS: ADMIT Internal Medicine; ATTEND Registered Nurse